=== PATIENT | male | born 1970 | race Caucasian/White ===

== ENCOUNTER 2016-09-17 13:42 | Emergency (ER) | payer OTHER ==
[~2016-09-17] VITALS: Ht 182.9 cm; Wt 98.8 kg
[~2016-09-17 13:42] MED LIST: CLC100X PO; COLC0.6T54 PO; DICY20TA10 PO; DILT360C17 PO; GARL705C PO; HYDR-3983 PO; HYG/25 PO; LISI20TA3 PO; MULTTAB58 PO; OMEGCAP2 PO; VENL150C PO; VITBC PO; ZOLP10TA PO
[2016-09-17 13:44] VITALS: TEMP 36.9; Ht 182.9 cm; Wt 98.8 kg
[2016-09-17] MEDS ORDERED: IMT100 PO (14:13)
[2016-09-17] MEDS ORDERED: PROP10TA7 PO (14:13)
[2016-09-17 15:27] LABS: URINE APPEARANCE CLEAR (CLEAR); URINE BILIRUBIN NEG (NEG); URINE COLOR YELLOW; URINE NITRITE NEG (NEG); URINE SPECIFIC GRAVITY 1.017 (1.000-1.030); UROBILINOGEN NEG (NEG); ZZUR CULT IF INDIC CLEAN CATCH NO
[2016-09-17] MEDS ORDERED: AMLO-114 PO (15:29)
[2016-09-17] MEDS ORDERED: BUSP15TA70 PO (15:29)
[2016-09-17] MEDS ORDERED: VENL225T27 PO (15:29)
[2016-09-17] MEDS ORDERED: BACL10TA PO (15:29)
[2016-09-17] MEDS ORDERED: BUPR1SUB23 SL (15:29)
[2016-09-17 15:34] LABS: MANUAL MICROSCOPIC REQUIRED? NO; REVIEW REQ? NO
[2016-09-17 15:40] LABS: BASO % 1.5 %; BASO ABS # 0.15 K/uL (0-0.2); COMPLETE YES; EOS % 7.2 %; HEMATOCRIT 44.3 % (42-52); IG% 0.4 %; LYMPH % 18.7 %; LYMPH ABS # 1.88 K/uL (1.2-3.4); MEAN CELL VOLUME 85.9 fL (80-100); MEAN CORPUSCULAR HEMOGLOBIN 28.7 pg (25-34); MEAN CORPUSCULAR HGB CONC 33.4 g/dl (32-36); MEAN PLATELET VOLUME 9.4 fL (7.4-10.4); MONO % 9.4 %; NEUT % 62.8 %; PLATELET COUNT 332 K/uL (130-400); RED BLOOD COUNT 5.16 M/uL (4.7-6.1); WHITE BLOOD COUNT 10.05 K/uL (4.8-10.8)
[2016-09-17] MEDS ORDERED: OPTIRAY 320 IV PRN (15:45)
--- NOTE | 2016-09-17 15:47 | EMERGENCY ROOM VISIT NOTE ---
History Report prepared by Tamera: Ruben Sanchez Under the Supervision of: Dr. Toribio Diaz M.D. First contact with patient: 15:26 Chief Complaint: ABDOMINAL PAIN Stated Complaint: STOMACH PAIN, NAUSEA Nursing Triage Summary: gastric bypass 4 years ago. hernia operation a few months ago, reports he has fluid build up in stomach. Vomiting since last night. Right sided abd pain. History of Present Illness The patient is a 45 year old male who presents to the Emergency Room with complaints of sudden fluid buildup in the stomach beginning a few days prior to arrival. He currently rates his discomfort as a 2/10 in severity. The patient associates nausea, vomiting, and abdominal pain with today's symptoms. He notes the nausea and vomiting began last night. The patient states his symptoms worsen with eating. He notes he had gastric bypass surgery at [place] in 2009, and he has lost 240 pounds since. The patient states he began experiencing hernia issues following the surgery and had many hernia repairs. He notes he had a hernia fixed a year and a half ago, in which, he had difficulty urinating. The patient states he had fluid buildup in his stomach following the surgery, so he had a drain tube placed for four months. He notes he has not had any issues for a year and a half since his last surgery until recently, when he began feeling sick following eating. The patient denies speaking to his gastric bypass surgeon about his current symptoms. 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 Please see Additional Medical History Sheet. Past Medical & Surgical Medical Problems: (1) Cholecystectomy (2) HEADACHE (3) Hernia repair (4) HYPERTENSION NOS (5) Irritable colon Family History Hypertension Social History Smoking Status: Never Smoker Alcohol Use: none Drug Use: none Marital Status: Housing Status: lives with family Occupation Status: employed Current/Historical Medications Scheduled Amlodipine (Norvasc), 10 MG PO DAILY Buprenorphine Hcl-Naloxone Hcl (Suboxone 8-2 Mg), 1 TABS SL BID Chlorthalidone (Hygroton), 25 MG PO DAILY Dicyclomine Hcl (Dicyclomine Hcl), 20 MG PO QID PRN Diltiazem Hcl Coated Beads (Cardizem Cd), 1 CAP PO DAILY Fluorometholone (Ophth) (Fml Forte 0.25% Oph), 1 DROP OPR QAM Lisinopril (Prinivil), 20 MG PO DAILY Multiple Vitamin (Multivitamin), 1 TAB PO DAILY Propranolol (Inderal), 30 MG PO DAILY Ranitidine Hcl (Zantac), 150 MG PO BID Sumatriptan Succinate (Imitrex), 100 MG PO PRN Sumatriptan Succinate (Imitrex), 1 DOSE INJ prn ud Venlafaxine Hcl (Venlafaxine Hcl Er), 1 TAB PO DAILY Vitamin B Complex (Vitamin B Complex), 1 TAB PO DAILY Allergies Coded Allergies: No Known Allergies (Unverified , 10/30/12) Physical Exam Vital Signs Date Time Temp Pulse Resp B/P Pulse Ox O2 Delivery O2 Flow Rate FiO2 09/17/16 19:37 72 18 118/75 97 09/17/16 18:30 80 15 125/72 95 Room Air 09/17/16 16:25 84 15 122/73 94 Room Air 09/17/16 13:44 36.9 85 18 116/76 98 Room Air Physical Exam GENERAL: Patient awake, alert, oriented x 3, in minimal distress. Patient follows commands. Patient does not appear toxic. Patient is adequately hydrated and well-nourished. SKIN: No erythema, pallor, cyanosis or rash HEENT: Normal head, pupils equal, reactive to light and accommodation. LUNGS: Clear to auscultation. No wheezes, no rales, no rhonchi. HEART: No murmurs. No gallops. No rubs ABDOMEN: Bowel sounds present. Patient has some vague epigastric tenderness. Patient has multiple well healed scars with significant scar tissue. Right lower quadrant tenderness. EXTREMITIES: No signs of trauma or infection. NEUROLOGIC: Cranial nerves II-XII within normal limits. No gross motor sensory function deficits. Medical Decision & Procedures ER Provider Diagnostic Interpretation: CT results are interpretations by the radiologist and per my review. CT ABD/PELVIS IV AND ORAL CONT CLINICAL HISTORY: Generalized abdominal pain COMPARISON STUDY: 10/30/2012 TECHNIQUE: Following the IV administration of 119 mL of Optiray-320, CT scan of the abdomen and pelvis was performed from the lung bases to the proximal femurs. Images are reviewed in the axial, sagittal, and coronal planes. IV contrast was administered without complication. CT DOSE: 774.72 mGy.cm FINDINGS: Lower chest: The heart is normal in size and configuration, without pericardial effusion. The lung bases and pleural spaces are clear. Liver: There is mild hepatic steatosis. There is scattered hepatic hypodensities the largest of which measures 16 mm. These approach water density and likely represent cysts. Gallbladder: Not visualized Spleen: Normal in size and attenuation. Pancreas: Unremarkable. Adrenal glands: Unremarkable. Kidneys: There are multiple nonobstructing bilateral renal calculi. There is no hydronephrosis. There is a 12 mm right renal cyst. There is a 5 mm right renal cyst. Bowel: There are no transition zones indicate bowel obstruction. The appendix appears normal. There is no acute diverticulitis. There are postsurgical changes involving the stomach. There is mild fecal retention. Peritoneum: There is no free air. There are postsurgical changes related to a prior right inguinal hernia repair. There is no ascites. Vasculature: The abdominal aorta is normal in course and caliber. Adenopathy: There are mildly prominent mesenteric lymph nodes Pelvic viscera: The bladder, and pelvic viscera are unremarkable. Skeletal structures: No destructive osseous lesions are seen. IMPRESSION: 1. No evidence of bowel obstruction. No evidence of free air 2. Normal appendix 3. No acute inflammatory changes 4. Renal and hepatic hypodensities, likely representing cysts 5. Minimally prominent mesenteric lymph nodes 6. Bilateral nonobstructing renal calculi 7. Postsurgical changes of prior gastric bypass Electronically signed by: Derek Floyd M.D. 09/17/2016 6:32 PM Laboratory Results 09/17/16 15:30 Red Blood Count 5.16, Mean Corpuscular Volume 85.9, Mean Corpuscular Hemoglobin 28.7, Mean Corpuscular Hemoglobin Concent 33.4, Mean Platelet Volume 9.4, Neutrophils (%) (Auto) 62.8, Lymphocytes (%) (Auto) 18.7, Monocytes (%) (Auto) 9.4, Eosinophils (%) (Auto) 7.2, Basophils (%) (Auto) 1.5, Neutrophils # (Auto) 6.32, Lymphocytes # (Auto) 1.88, Monocytes # (Auto) 0.94, Eosinophils # (Auto) 0.72, Basophils # (Auto) 0.15 09/17/16 15:30 Test 09/17/16 15:10 09/17/16 15:30 Urine Color YELLOW Urine Appearance CLEAR (CLEAR) Urine pH 6.0 (4.5-7.5) Urine Specific [place] 1.017 (1.000-1.030) Urine Protein NEG (NEG) Urine Glucose (UA) NEG (NEG) Urine Ketones NEG (NEG) Urine Occult Blood NEG (NEG) Urine Nitrite NEG (NEG) Urine Bilirubin NEG (NEG) Urine Urobilinogen NEG (NEG) Urine Leukocyte Esterase NEG (NEG) White Blood Count 10.05 K/uL (4.8-10.8) Red Blood Count 5.16 M/uL (4.7-6.1) Hemoglobin 14.8 g/dL (14.0-18.0) Hematocrit 44.3 % (42-52) Mean Corpuscular Volume 85.9 fL (80-100) Mean Corpuscular Hemoglobin 28.7 pg (25-34) Mean Corpuscular Hemoglobin Concent 33.4 g/dl (32-36) Platelet Count 332 K/uL (130-400) Mean Platelet Volume 9.4 fL (7.4-10.4) Neutrophils (%) (Auto) 62.8 % Lymphocytes (%) (Auto) 18.7 % Monocytes (%) (Auto) 9.4 % Eosinophils (%) (Auto) 7.2 % Basophils (%) (Auto) 1.5 % Neutrophils # (Auto) 6.32 K/uL (1.4-6.5) Lymphocytes # (Auto) 1.88 K/uL (1.2-3.4) Monocytes # (Auto) 0.94 K/uL (0.11-0.59) Eosinophils # (Auto) 0.72 K/uL (0-0.5) Basophils # (Auto) 0.15 K/uL (0-0.2) RDW Standard Deviation 44.0 fL (36.4-46.3) RDW Coefficient of Variation 14.2 % (11.5-14.5) Immature Granulocyte % (Auto) 0.4 % Immature Granulocyte # (Auto) 0.04 K/uL (0.00-0.02) Anion Gap 7.0 mmol/L (3-11) Est Creatinine Clear Calc Drug Dose 117.1 ml/min Estimated GFR () 108.8 Estimated GFR (Non- 93.9 BUN/Creatinine Ratio 17.6 (10-20) Calcium Level 9.1 mg/dl (8.5-10.1) Total Bilirubin 0.3 mg/dl (0.2-1) Aspartate Amino Transf (AST/SGOT) 28 U/L (15-37) Alanine Aminotransferase (ALT/SGPT) 39 U/L (12-78) Alkaline Phosphatase 121 U/L (45-117) Total Protein 7.4 gm/dl (6.4-8.2) Albumin 4.3 gm/dl (3.4-5.0) Globulin 3.1 gm/dl (2.5-4.0) Albumin/Globulin Ratio 1.4 (0.9-2) Lipase 196 U/L (73-393) Laboratory results as stated above per my review. Medications Administered Medications (Trade) Dose Ordered Sig/Jonathon Route Start Time Stop Time Status Last Admin Dose Admin Ondansetron HCl (Zofran Inj) 4 mg STK-MED ONCE .ROUTE 09/17/16 16:16 09/17/16 16:18 DC 09/17/16 16:25 4 MG Ranitidine HCl (zANTac TAB) 150 mg NOW ONCE PO 09/17/16 19:15 09/17/16 19:16 DC 09/17/16 19:33 150 MG ED Course 1528: Past medical records reviewed. The patient was evaluated in room C2B. A complete history and physical examination was performed. 1629: Ordered Zofran Inj 4 mg IV. 1914: Ordered Ranitidine HCl 150 mg PO. 1916: Upon reevaluation, the patient appeared to have improvement of his symptoms. I discussed today's findings with him. He verbalized agreement of the treatment plan. The patient was discharged home. Medical Decision Nurses notes reviewed. Medical history sheet reviewed. Differential diagnosis includes but is not limited to: bowel obstruction, post gastric bypass complications. The patient is here with bloating and early satiety. Multiple labs and imaging was obtained. Please see above. The patient's alkaline phosphatase is slightly elevated but the rest of his blood work is within normal range. CT does not reveal an obstruction or mass. The patient may have some gastritis or GERD. The patient will be started on Zantac. He is to follow-up with his family physician. He may need GI follow-up and possible endoscopy if symptoms do not resolve. Impression Primary Impression: Gastritis Additional Impression: History of gastric bypass Scribe Attestation The scribe's documentation has been prepared under my direction and personally reviewed by me in its entirety. I confirm that the note above accurately reflects all work, treatment, procedures, and medical decision making performed by me. Departure Information Dispostion Home / Self-Care Prescriptions Ranitidine Hcl (ZANTAC) 150 Mg Tab 150 MG PO BID, #60 TAB Prov: Toribio Diaz M.D. 09/17/16 Referrals No Doctor, Assigned (PCP) Forms Call Back Authorization, HOME CARE DOCUMENTATION FORM, IMPORTANT VISIT INFORMATION Patient Instructions My [facility] Additional Instructions 150 mg of Zantac twice a day. Continue all current medications as prescribed. Follow-up with your family physician within the next 14 days. Problem Qualifiers
[2016-09-17] MEDS ORDERED: SUMA6INJ INJ (15:54)
[2016-09-17] MEDS ORDERED: DILT360C17 PO (15:54)
[2016-09-17] MEDS ORDERED: FLUO0.25 OPR (15:58)
[2016-09-17 15:59] LABS: BUN/CREATININE RATIO 17.6 (10-20); CALCIUM 9.1 mg/dl (8.5-10.1); CREATININE 0.97 mg/dl (0.60-1.40); POTASSIUM 4.4 mmol/L (3.5-5.1)
[2016-09-17 16:02] LABS: ALB/GLOB RATIO 1.4 (0.9-2)
[2016-09-17] MEDS ORDERED: ONDANSETRON INJ 2 MG/ML 2 ML VIAL ONE (16:16)
[2016-09-17] MEDS ORDERED: ONDANSETRON INJ 2 MG/ML 2 ML VIAL IV PRN (16:30)
--- NOTE | 2016-09-17 18:33 | DIAGNOSTIC IMAGING REPORT ---
CT ABD/PELVIS IV AND ORAL CONT CLINICAL HISTORY: Generalized abdominal pain COMPARISON STUDY: 10/30/2012 TECHNIQUE: Following the IV administration of 119 mL of Optiray-320, CT scan of the abdomen and pelvis was performed from the lung bases to the proximal femurs. Images are reviewed in the axial, sagittal, and coronal planes. IV contrast was administered without complication. CT DOSE: 774.72 mGy.cm FINDINGS: Lower chest: The heart is normal in size and configuration, without pericardial effusion. The lung bases and pleural spaces are clear. Liver: There is mild hepatic steatosis. There is scattered hepatic hypodensities the largest of which measures 16 mm. These approach water density and likely represent cysts. Gallbladder: Not visualized Spleen: Normal in size and attenuation. Pancreas: Unremarkable. Adrenal glands: Unremarkable. Kidneys: There are multiple nonobstructing bilateral renal calculi. There is no hydronephrosis. There is a 12 mm right renal cyst. There is a 5 mm right renal cyst. Bowel: There are no transition zones indicate bowel obstruction. The appendix appears normal. There is no acute diverticulitis. There are postsurgical changes involving the stomach. There is mild fecal retention. Peritoneum: There is no free air. There are postsurgical changes related to a prior right inguinal hernia repair. There is no ascites. Vasculature: The abdominal aorta is normal in course and caliber. Adenopathy: There are mildly prominent mesenteric lymph nodes Pelvic viscera: The bladder, and pelvic viscera are unremarkable. Skeletal structures: No destructive osseous lesions are seen. IMPRESSION: 1. No evidence of bowel obstruction. No evidence of free air 2. Normal appendix 3. No acute inflammatory changes 4. Renal and hepatic hypodensities, likely representing cysts 5. Minimally prominent mesenteric lymph nodes 6. Bilateral nonobstructing renal calculi 7. Postsurgical changes of prior gastric bypass Electronically signed by: Derek Floyd M.D. 09/17/2016 6:32 PM Dictated Date/Time: 09/17/2016 6:25 PM
[2016-09-17] MEDS ORDERED: RANITIDINE HCL 150 MG TAB PO ONE (19:15)
[2016-09-17] MEDS ORDERED: RANI150T3 PO (19:18)
[2016-09-17 19:37] VITALS: BP 118/75; PULSE 72; O2SAT 97
== END 2016-09-17 19:37 | disposition home or self-care (01) ==
LOC: C.EDB 13:44 → C.EDC 19:37
DX: K29.70 Gastritis, unspecified, without bleeding (principal); Z98.84 Bariatric surgery status; I10 Essential (primary) hypertension; Z79.899 Other long term (current) drug therapy